=== PATIENT | male | born 1960 | race African-American/Black ===

== ENCOUNTER → 2018-07-20 | Outpatient (CLI) | payer OTHER ==
[~2018-07-20] MED LIST: ALEVE220 M1 PO; AMLODIPINE BESY10 MG PO; ASPIRIN EC81 M1 PO; AUGMENTIN 875-1 EACH PO; AUGMENTIN 875875 MG PO; ENDOCET 10-3251 EACH PO; FLEXERIL PO; HYDROCODON-ACE1 EAC7 PO; LOPRESSOR; METOPROLOL SUCC25 M1 PO; NORCO 5-325 TA1 EACH PO; NORFLEX100 MG PO; PRAVACHOL40 MG PO; SIMVASTATIN40 MG PO; ULTRAM 50MG TAB50 MG PO; XARELTO10 M1 PO
== END ==
LOC: NUC 07:55
DX: T84.84XA Pain due to internal orthopedic prosthetic devices, implants and grafts, initial encounter (principal); Z96.651 Presence of right artificial knee joint

== ENCOUNTER → 2018-08-06 | Outpatient (CLI) | payer OTHER | LOC: CAT 09:27 | DX: K76.89 Other specified diseases of liver (principal); N20.0 Calculus of kidney; N28.1 Cyst of kidney, acquired; M51.36 Other intervertebral disc degeneration, lumbar region; M41.86 Other forms of scoliosis, lumbar region ==

== ENCOUNTER 2018-10-28 05:24 | Inpatient (IN) | payer OTHER ==
[2018-10-12 09:18] LABS: HEMATOCRIT 43.1 % (42.0-52.0); HEMOGLOBIN 14.7 gm/dL (14.0-18.0); MCH 30.3 pg (26.0-34.0); MCV 89.1 fL (80.0-100.0); RBC 4.84 mil/uL (4.50-6.00); RDW 13.6 % (10.5-14.5); WBC 4.5 thou/uL (4.0-11.0)
[2018-10-12 09:23] LABS: URINE BILIRUBIN NEGATIVE (Negative); URINE BLOOD NEGATIVE (Negative); URINE CLARITY CLEAR; URINE COLOR YELLOW; URINE GLUCOSE-RANDOM* NEGATIVE (Negative); URINE KETONES NEGATIVE (Negative); URINE LEUKOCYTES-REFLEX NEGATIVE (Negative); URINE NITRITE-REFLEX NEGATIVE (Negative); URINE PROTEIN (DIPSTICK) NEGATIVE (Negative); URINE SPECIFIC GRAVITY 1.015 (1.005-1.035); URINE UROBILINOGEN 0.2 E.U./dl (0.2-1.0)
[2018-10-12 09:27] LABS: ALBUMIN 3.5 g/dL (3.4-5.0); CALCIUM 8.8 mg/dL (8.5-10.1); CREATININE 0.9 mg/dL (0.7-1.3); POTASSIUM 4.1 mmol/L (3.5-5.1)
[~2018-10-28] VITALS: Ht 185.4 cm; Wt 127.0 kg
--- NOTE | ~2018-10-28 | O ---
[facility] [place] [address] OPERATIVE REPORT Name: TERRY BURDEN Room #: 432-P ADM IN M.R.#: [id number] Admission: 11/05/18 ������������������ Attend Phys: Lawson Oliveros MD Discharge: ������������������ Date of : 60 Report #: [id number] THIS REPORT FOR: //name// CC: Lawson Barnard DATE OF SERVICE: 11/05/2018 PREOPERATIVE DIAGNOSIS: Aseptic loosening, right total knee arthroplasty. POSTOPERATIVE DIAGNOSIS: Aseptic loosening, right total knee arthroplasty. PROCEDURE: Revision of total right knee arthroplasty, all components. SURGEON: Lawson Oliveros MD MECHANIC SENIOR: Beverley Villegas PA-C. INDICATIONS FOR MECHANIC SENIOR: Throughout the case, extensive retraction and manipulation of the knee was required. This was afforded to me by my personal care assistant. ANESTHESIA: LMA with an adductor canal block. IMPLANTS: Up and Nephew size 6 Legion Oxinium revision, posterior stabilized femur with a 6 offset briquetting machine operator and a size 16 x 160 stem, a size 5 tibia with a 6 offset briquetting machine operator and a size 16 x 160 stem and a size 38 patella and a size 15 highly constrained polyethylene. TOURNIQUET TIME: 134 minutes with the tourniquet being deflated at 114 minutes for approximately 20 minutes. ESTIMATED BLOOD LOSS: Less than 50 mL. COMPLICATIONS: None. SPECIMENS: Intraoperative frozen section was performed and shown to have no neutrophils per high-power field. In addition, intraoperative cultures were taken x 2. CONDITION UPON LEAVING THE OPERATING ROOM: Stable. INDICATIONS FOR PROCEDURE: The patient is a 58-year-old gentleman who is about 6 years out from a right total knee arthroplasty. He was lost to follow up until recently. He returned with significant stiffness and pain in the knee. Workup for infection was negative. Bone scan and x-rays show him to have probable aseptic loosening of components ____ surrounding the components. ____ [facility] [address] [place] [address] OPERATIVE REPORT Name: TERRY BURDEN Room #: 432-P [facility] IN ..#: [id number] Admission: 11/05/18 ������������������ Attend Phys: Lawson Oliveros MD Discharge: ������������������ Date of : 60 Report #: [id number] for revision total knee arthroplasty. DESCRIPTION OF PROCEDURE: Risks, benefits, alternatives, complications were discussed in detail with the patient including but not limited to risk of anesthesia, risk of damage to nerves, arteries, blood vessels, risk for infection or bleeding, risk for continued knee pain and need for reoperation. Informed consent was obtained from the patient. Right knee was appropriately marked in the preoperative holding area. IV Ancef was given for preoperative antibiotics. He was brought to the operating room and placed in supine position on operating room table. LMA anesthesia was induced without complication. Tourniquet was placed on the right thigh. Right lower extremity was prepped and draped in normal sterile fashion. Timeout was performed properly identifying the patient and procedure as well as the instrumentation. All in the operating room were in agreement. Right lower extremity was exsanguinated, tourniquet was inflated. Tourniquet time was 134 minutes. The previous scar was used and this was opened with a 10 blade through the skin. Dissection was taken down sharply to the fascia and deep flaps were developed medially and laterally. Fresh 10 blade was used to make a medial parapatellar arthrotomy and the knee was inspected. There was normal-appearing joint fluid. Cultures of this were taken x 2. Several sample areas of synovium were then sent to pathology for intraoperative frozen section, which revealed ____ power field. There was extensive heterotopic ossification around the soft tissues of the knee as his knee range of motion was only 10-60 degrees. The medial and lateral gutters were reestablished. Extensive dissection had to be performed along the medial and lateral gutters both along the femur and the tibia to mobilize the tissues. The polyethylene spacer was removed and the femoral component was removed with osteotomes. There was osteolysis noted, particularly around the anterior femoral cortex. After this, attention was turned to the tibia and osteotomes were used to remove this. We actually had to go and to make our femoral cleanup cut and prepared a femur in order to create enough space to remove the tibial component. The patellar component had to be removed also in order to make room to remove the tibial component. After removing the tibial component, this was reamed up and prepared. We sized the size 5 tibia with a 6 mm offset briquetting machine operator and had a 16 x 160 stem. The trial tibial component was placed and the trial femoral component was placed. This had a 16 x 160 stem with a 6 mm offset briquetting machine operator also. The box cut was made. This was then trialed with a size 15 highly constrained polyethylene and found to have good balance medially and laterally in flexion and extension. A 38 patellar trial button was placed. Knee was taken through range of motion and found to have good patellar tracking. Trial components were removed. Bony ends were thoroughly irrigated with normal saline. Final size 5 tibia with a 6 mm offset briquetting machine operator and a 16 x [address] in place, a size 6 femur with a 16 x 160 stem and a 6 mm offset briquetting machine operator was cemented in place and a 38 patella. While the cement cured, a periarticular injection consisting of morphine, ropivacaine, epinephrine and Toradol was placed around the knee joint capsule. After the cement cured, the [facility] [address] [place] [address] OPERATIVE REPORT Name: TERRY BURDEN Room #: 432-P ADM IN M.R.#: [id number] Admission: 11/05/18 ������������������ Attend Phys: Lawson Oliveros MD Discharge: ������������������ Date of : 60 Report #: [id number] tourniquet was again deflated and hemostasis was obtained with Bovie cautery. Final size 15 highly constrained polyethylene was placed. Knee was thoroughly irrigated with normal saline. A gram of vancomycin was placed deep in the joint and fascia was closed with 0 Vicryl, skin was closed with 2-0 Vicryl, skin laura and a EDNA dressing was applied. The patient tolerated this procedure well and went to the recovery room under care of anesthesia postoperatively. ��������������������������������������������� ���������������������������������������� By: ��������������������������������������������� 1213 1244 Lawson Oliveros MD /nt
[~2018-10-28 05:24] MED LIST changes: +ALEVE220 MG PO; +AVAPRO300 MG PO; +DIOVAN160 MG PO; +IBUPROFEN 800800 M1 PO; +LIPITOR40 MG PO; +MOBIC7.5 MG PO
[2018-11-05 07:50] VITALS: BP 130/73
[2018-11-05 14:47] VITALS: BP 122/70
[2018-11-05 14:52] VITALS: BP 122/70
--- NOTE | 2018-11-05 17:26 | NUR ---
PT ADMITTED RELATED TO RIGHT TOTAL KNEE REVISION. CM REVIEWED CHART AND SPOKE WITH THE CARE TEAM. CM MET WITH PT AND SPOUSE AT BEDSIDE THIS DAY. PT IS A&O X4. CM ROLE INTRODUCED. PT INDIATED THEY LIVE IN A HOUSE WITH NO STEPS TO ENTER AND 4 STEPS INSIDE. PT INDICATED HE WILL NEED A FWW ISSUED PTD. PT INDICATED SHE HE IS SET UP WITH OP THERAPY AT [facility]. CM TO FOLLOW INDICATED WITH DC PLANNING.
[2018-11-05 19:35] VITALS: BP 141/66
--- NOTE | 2018-11-05 20:28 | NUR ---
PT ARRIVED TO FLOOR DROM RR AROUND 1435 IN STABLE CONDITION.VSS.CLEAR LIQ GIVEN AND WELL TOLERATED.IT WAS ADVANCE TO REGULAR.FAMILY AT BS MOST OF THE TIME.PT WAS UPSET LATER THIS EVENING RELATED TO SCD'S NOT TURNED ON.RN APOLOGIZED TO PT,AND SERVICE RECOVERY DONE.WILL CONTINUE TO MONITOR.
[2018-11-05 23:30] VITALS: BP 130/71
[2018-11-06 05:55] VITALS: BP 135/73
[2018-11-06 06:02] LABS: HEMATOCRIT 36.1 % (42.0-52.0); HEMOGLOBIN 12.2 gm/dL (14.0-18.0); MCH 29.9 pg (26.0-34.0); MCHC 33.7 g/dL (28.0-37.0); MCV 88.9 fL (80.0-100.0); RBC 4.06 mil/uL (4.50-6.00); RDW 13.5 % (10.5-14.5); WBC 12.1 thou/uL (4.0-11.0)
--- NOTE | 2018-11-06 06:43 | NUR ---
ASSUMED CARE AT 1900, ASSESSMENT COMPLETED. PT REPORTS VERY LITTLE PAIN IN RIGHT LEG, STILL MOSTLY NUMB IN EXTREMITY. PT REPORTS HE DOESN'T LIKE TO TAKE NARCOTICS BECAUSE THEY MAKE HIM SICK; REFUSED HS OXYCONTIN AND TOOK TYLENOL INSTEAD. IRRITABLE OVERNIGHT DUE TO BEING WOKEN UP FOR Q4 HOUR POST OP VS AND LABS; EXPLAINED THESE WERE ORDERED BY THE PHYSICIAN BUT PT STILL FRUSTRATED. URINATING WELL USING URINAL. NO OTHER CONCERNS, WILL CONTINUE TO MONITOR.
[2018-11-06 07:52] VITALS: BP 124/62
--- NOTE | 2018-11-06 11:32 | NUR ---
Assumed care of pt at 0700. Pt alert and oriented x4. Pt pleasant this am and worked with physical therapy. Pt wants to avoid narcotics. Tylenol given for pain. Polar pack in place. Dressing clean and intact. Call light within reach. Fall precautions in place. Will continue to monitor and assist with needs.
[2018-11-06] MEDS ORDERED: NEURONTIN 300300 M1 PO (12:29)
--- NOTE | 2018-11-06 14:06 | PATH ---
[facility] [place] [address] PATHOLOGY RPT PROCEDURE Name: TERRY BURDEN Room #: 432-P ADM IN M.R.#: [id number] ������������������ Admission: 11/05/18 ������������������ Date of : 60 Discharge: Report #: [id number] Path Case #: [id number] [facility] Accession Number: [id number] . 01 Material submitted: . knee - RIGHT KNEE SYNOVIUM - FS. Modifiers: right . 01 Clinical history: . Right knee presence artrifical knee joint, osteoarthritis . 02 Frozen section diagnosis: . FROZEN SECTION DIAGNOSIS (Cathi Richardson MD) . FSA1. Synvoium, right knee synovium, biopsy: - Approximately 1-2 neutrophils (none greater than 5) per high power field. . These findings are discussed with Dr. Lawson Oliveros in OR-5 at [facility] and a written report is placed in the patient's chart. (IUV:linda; 11/05/2018) . Frozen section performed at [facility], [address], [place] [address]. . . GROSS DESCRIPTION Specimen is received fresh from the OR labeled with the patient's name, "right knee synovium", consists of three firm, chandler fragments of tissue measuring 6 x 1.5 x 1 and 2.8 x 1 x 1 cm. The apparent synovium-like lining is shaved and submitted for frozen section as FSA1. This is subsequently submitted for permanent sections as A1. The unfrozen portion of the tissue is submitted representatively in A2 to A5 for permanent sections only. (IUV:linda; 11/05/2018) IZV/QMS . 02 Diagnosis: Synovium, right knee synovium, biopsy: - Chronic inflammation associated with reactive/regenerative changes including dystrophic calcifications. - Rare foci with neutrophil margination; none consistent with acute inflammation. (See comment) - Reactive synovial hyperplasia. (IUV:regional controller; 11/06/2018) MBR/11/06/2018 . [address] [place] [address] PATHOLOGY RPT PROCEDURE Name: TERRY BURDEN Room #: 432-P ADM IN M.R.#: [id number] ������������������ Admission: 11/05/18 ������������������ Date of : 60 Discharge: Report #: [id number] Path Case #: [id number] Comment: A single focus shows neutrophils in close association with the vessels. This phenomena is consistent with margination. Multiple sections are examined and none of the other sections show collection of neutrophils greater than 5/hpf to support acute inflammation in this synovial tissue. (IUV:regional controller; 11/06/2018) . 02 Electronically signed: . Cathi Richardson MD, Pathologist NPI- [id number] . 01 Gross description: . Please see gross description dictated by the pathologist located under the Frozen Section portion of this report. /QMS . 02 Pathologist provided ICD-10: M65.861 . 02 CPT . 679523, [id number] Specimen Comment: A courtesy copy of this report has been sent to Specimen Comment: [phone], . Specimen Comment: Report sent to and Performed at: [address], [place] [id number] MD Gunnar Park MD Phone: [phone] Performed at: [address] [id number] MD Cathi Richardson MD Phone: [phone]
[2018-11-06 16:30] VITALS: BP 131/55
--- NOTE | 2018-11-06 17:03 | NUR ---
CARE TEAM INDICATED THAT PT IS STILL HAVING ISSUES WITH PAIN MANAGEMENT. IT IS ANTICPATED THAT PT WILL DISHCARGE TOMORROW FRIDAY OR FRIDAY. CM ORDERED FWW THROUGH [facility] AND IT WAS DELIVED TO PT FRIDAY. PT IS SET UP WITH OP THERAPY. NO OTHER CM INTERVENTION INDICATED. CASE CLOSED.
[2018-11-06 19:20] VITALS: BP 109/66
[2018-11-06 23:00] VITALS: BP 120/72
[2018-11-06 23:50] VITALS: BP 120/72
[2018-11-07 03:20] VITALS: BP 150/82
[2018-11-07 05:12] LABS: HEMATOCRIT 33.8 % (42.0-52.0); HEMOGLOBIN 11.8 gm/dL (14.0-18.0); MCH 30.9 pg (26.0-34.0); MCHC 34.8 g/dL (28.0-37.0); MCV 88.6 fL (80.0-100.0); RBC 3.82 mil/uL (4.50-6.00); RDW 13.3 % (10.5-14.5); WBC 9.2 thou/uL (4.0-11.0)
--- NOTE | 2018-11-07 05:55 | NUR ---
Assumed pt care at 1900. A/OX4.Denies pain on assessment,doesn't want Narcotics held HS [facility] per request. Pt had a temp 0f 102.4 at beginning of shift medicated with Tylenol x2 and Temp gradually coming down 99.6.EDNA dsg on right knee C/D/I with polar ice applied. Voiding via urinal with no problems voiced. Up with assist,WBAT. Fall precautions in place. Resting quietly at this time will continue to monitor pt.
[2018-11-07 08:30] VITALS: BP 117/69
--- NOTE | 2018-11-07 12:27 | NUR ---
Assumed care of pt at 0700. Pt alert and oriented x4. SBA w/walker and gaitbelt. aware of pt running fevers. Continued treatment with tylenol. Polar pack in place. Pain controlled with prn pain meds. Pt refuses narcotic pain relievers. Uses urinal. Call light within reach. Fall precautions in place. Will continue to monitor.
[2018-11-07 16:17] VITALS: BP 137/54
[2018-11-08 05:11] LABS: HEMATOCRIT 33.1 % (42.0-52.0); HEMOGLOBIN 11.3 gm/dL (14.0-18.0); MCH 30.2 pg (26.0-34.0); MCHC 34.2 g/dL (28.0-37.0); MCV 88.3 fL (80.0-100.0); RBC 3.75 mil/uL (4.50-6.00); RDW 13.5 % (10.5-14.5); WBC 10.5 thou/uL (4.0-11.0)
[2018-11-08 05:20] VITALS: BP 129/73
--- NOTE | 2018-11-08 07:23 | NUR ---
ASSUMED CARE AT 1900, ASSESSMENT COMPLETED. PT REPORTS PAIN 4 OF 10, AGREED TO TAKE MORPHINE XR AND HS WHICH IMPROVED PAIN OVERNIGHT, PT DENIED ANY REACTION TO MED. DENIED NAUSEA OR SOB. EDNA DRESSING INTACT, POLAR PACK IN PLACE. PT ASKED TO CLEAN UP, BUT KEPT DELAYING WHEN STAFF WOULD ASK HIM IF HE WAS READY. PT THEN REPORTED HE WOULD WAIT UNTIL MORNING TO CLEAN UP; REMOTE SENSING SPECIALIST ASSISTED TO CLEAN UP THIS AM. NO OTHER CONCERNS, SHIFT REPORT GIVEN AT 0700.
[2018-11-08 07:39] VITALS: BP 123/69
--- NOTE | 2018-11-08 16:31 | NUR ---
Assumed care of pt at 0700. Pt a&ox4. Pain controlled. Polar pack in place. Family at bedside. Call light within reach. Fall precautions in place. Will continue to monitor.
[2018-11-08 17:27] VITALS: BP 131/65
[2018-11-08 20:13] VITALS: BP 121/69
--- NOTE | 2018-11-09 03:31 | NUR ---
ASSUMED PT CARE 1899. PT ALERT AND ORIENTED. REASSESSMENT COMPLETE, VSS. TEMP TREATED WITH TYLENOL. DOCTORS AWARE OF RECURRENT ELEVATED TEMPS. REPORTS MINIMAL PAIN, SEE EMARAishwarya GILLETTE N/V. PRUNE JUICE PROVIDED TO HELP PT HAVE BM. CALL LIGHT AND PERSONAL BELONGINGS WITHIN REACH. WILL CONTINUE POC UNTIL EOS.
[2018-11-09 06:44] VITALS: BP 113/57
[2018-11-09 08:20] VITALS: BP 126/69
--- NOTE | 2018-11-09 10:46 | NUR ---
ASSESMENT COMPLETED. VSS. A/O. DENIES PAIN. NO SOA. NO NV. EDNA DRESSING CDI/POLAR PACK INTACT. PT C/O CONSTIPATION- MAG CITRATE GIVEN- WAITING FOR RESULTS. PT RESTING IN BED AT THIS TIME. WILL CONT. TO MONITOR.
[2018-11-09 16:41] VITALS: BP 126/69
--- NOTE | 2018-11-09 17:32 | NUR ---
PT ABLE TO HAVE A BM. DC ORDERS GIVEN TO PT AND . BOTHE VERBALIZED UNDERSTANDING. PT DCD HOME WITH SELF CARE.
== END 2018-11-09 17:38 | disposition home or self-care (01) | DRG 468 ==
LOC: PRE 05:24 → TBA 05:24 → 4E 11-05 05:21 → TBA 11-05 05:21 → PRE 11-05 05:45 → 4E 11-05 14:43
PROVIDERS: ADMIT Orthopaedic Surgery
PROC: 0SPC0JZ Removal of Synthetic Substitute from Right Knee Joint, Open Approach (ICD-10-PCS; principal; 2018-11-05)
PROC: 0SRC0J9 Replacement of Right Knee Joint with Synthetic Substitute, Cemented, Open Approach (ICD-10-PCS; principal; 2018-11-05)
DX: T84.032A Mechanical loosening of internal right knee prosthetic joint, initial encounter (principal); E66.01 Morbid (severe) obesity due to excess calories; E78.5 Hyperlipidemia, unspecified; I10 Essential (primary) hypertension; Y83.8 Other surgical procedures as the cause of abnormal reaction of the patient, or of later complication, without mention of misadventure at the time of the procedure; Y92.89 Other specified places as the place of occurrence of the external cause; Z68.36 Body mass index [BMI] 36.0-36.9, adult
CPT/HCPCS: 10783; 50010; 50101; 50415; 50954; 51130; 51225; 51412; 53000; 53078; 54118; 55389; 56527; 56528; 57095; 57103; 57110; 57115; 57180; 62110; 62900; 64039; 70005

== ENCOUNTER 2019-02-17 21:49 | Emergency (ER) | payer OTHER ==
[~2019-02-17] VITALS: Ht 182.9 cm; Wt 129.3 kg
[~2019-02-17 21:49] MED LIST changes: +NEURONTIN 300300 M1 PO
[2019-02-17 21:50] VITALS: BP 132/77
== END 2019-02-17 22:37 | disposition home or self-care (01) ==
LOC: ER 21:49
DX: S90.821A Blister (nonthermal), right foot, initial encounter (principal); I10 Essential (primary) hypertension; E78.00 Pure hypercholesterolemia, unspecified; Z96.651 Presence of right artificial knee joint; Z87.891 Personal history of nicotine dependence; X58.XXXA Exposure to other specified factors, initial encounter; Y92.89 Other specified places as the place of occurrence of the external cause; Y93.89 Activity, other specified; Y99.8 Other external cause status

== ENCOUNTER → 2019-02-19 | Outpatient (CLI) | payer OTHER | LOC: HYPER 10:36 | DX: S90.811A Abrasion, right foot, initial encounter (principal); I10 Essential (primary) hypertension; X58.XXXA Exposure to other specified factors, initial encounter; Y93.89 Activity, other specified; Y92.89 Other specified places as the place of occurrence of the external cause; Y99.8 Other external cause status ==

== ENCOUNTER 2019-05-01 17:21 | Emergency (ER) | payer OTHER ==
[~2019-05-01] VITALS: Ht 185.4 cm; Wt 127.0 kg
[2019-05-01 19:06] VITALS: BP 121/74
== END 2019-05-01 19:07 | disposition home or self-care (01) ==
LOC: ER 17:21
DX: Z53.21 Procedure and treatment not carried out due to patient leaving prior to being seen by health care provider (principal)

== ENCOUNTER 2020-05-30 21:20 | Emergency (ER) | payer OTHER, BC ==
[~2020-05-30] VITALS: Ht 185.4 cm; Wt 113.4 kg
[2020-05-30 22:18] LABS: ABSOLUTE NEUTROPHILS 3.9 thou/uL (1.4-8.2); EOSINOPHILS 1.4 % (0.0-3.0); HEMATOCRIT 41.2 % (42.0-52.0); HEMOGLOBIN 13.6 gm/dL (14.0-18.0); LYMPHOCYTES 31.4 % (24.0-44.0); MCH 29.9 pg (26.0-34.0); MCHC 33.1 g/dL (28.0-37.0); MCV 90.4 fL (80.0-100.0); PLATELET COUNT 282 thou/uL (150-400); POLYS 55.2 % (36.0-66.0); RBC 4.55 mil/uL (4.50-6.00); RDW 14.1 % (10.5-14.5); WBC 7.2 thou/uL (4.0-11.0)
[2020-05-30 22:22] LABS: ANION GAP 7 mmol/L (7-16); BUN 19 mg/dL (7-18); CALCIUM 8.9 mg/dL (8.5-10.1); CHLORIDE 101 mmol/L (98-107); CO2 28 mmol/L (21-32); CREATININE 1.2 mg/dL (0.7-1.3); GLUCOSE 133 mg/dL (74-106); POTASSIUM 3.2 mmol/L (3.5-5.1); SODIUM 136 mmol/L (136-145)
[2020-05-30 22:43] LABS: TROPONIN-I <0.06 ng/mL (<0.06)
[2020-05-30 23:56] VITALS: BP 130/77
--- NOTE | 2020-05-31 07:01 | EKG ---
[address] [address] ELECTROCARDIOGRAM REPORT Name: TERRY BURDEN [facility]: [facility] [id number] Admission: 05/30/20 Attend Phys: Discharge: 05/31/20 Date of : 60 Report #: [id number] [facility] ED Test Date: 2020-05-30 Test Time: 21:33:38 Pat Name: TRERY BURDEN Department: Room: Gender: Yarn Hauler: JOHANNY : 1960 Requested By: Fredy Corbett Order Number: [id number] MD: Bernardo Sanford Measurements Intervals [place] Rate: 95 P: 58 LA: 142 QRS: 55 QRSD: 93 T: 19 QT: 342 QTc: 430 Interpretive Statements Sinus rhythm Compared to ECG 10/03/2012 20:49:24 No significant changes Electronically Signed On 05-31-2020 7:01:23 TECHNOLOGY APPLICATIONS CONSULTANT by Bernardo Sanford [email or web address] <ELECTRONICALLY SIGNED> By: Bernardo Sanford MD, [facility] 05/31/20 0701 2133 [id number] Bernardo Sanford MD, FACC /EPI
== END 2020-05-31 | disposition home or self-care (01) ==
LOC: ER 21:20
PROVIDERS: Nurse Practitioner
DX: R07.9 Chest pain, unspecified (principal); I10 Essential (primary) hypertension; E78.5 Hyperlipidemia, unspecified; Z79.899 Other long term (current) drug therapy; Z79.82 Long term (current) use of aspirin; Z87.891 Personal history of nicotine dependence

== ENCOUNTER → 2020-06-21 | Outpatient (CLI) | payer OTHER, BC ==
[~2020-06-21] VITALS: Ht 185.4 cm; Wt 113.6 kg
[~2020-06-21] MED LIST changes: +CHOLECALCIFEROL1 GM PO; +FLOMAX0.4 MG PO; +VITAMIN B-121000 MC2 PO
[2020-06-21 10:29] VITALS: BP 128/76
[2020-06-21 11:12] LABS: HEMATOCRIT 46.4 % (42.0-52.0); HEMOGLOBIN 15.4 gm/dL (14.0-18.0); MCH 29.9 pg (26.0-34.0); MCHC 33.2 g/dL (28.0-37.0); MCV 89.9 fL (80.0-100.0); RBC 5.15 mil/uL (4.50-6.00); RDW 14.5 % (10.5-14.5); WBC 4.9 thou/uL (4.0-11.0)
[2020-06-21 11:20] LABS: CALCIUM 8.8 mg/dL (8.5-10.1); POTASSIUM 3.8 mmol/L (3.5-5.1)
--- NOTE | 2020-06-23 17:11 | CATHLAB ---
[facility] [place] [address] INVASIVE PROCEDURE REPORT Name: TERRY BURDEN Room #: REG MODESTO KirkAishwaryaMihaelaAishwarya#: [id number] Admission: 06/21/20 Attend Phys: Will Guillen Discharge: Date of : 60 Report #: [id number] THIS REPORT FOR: cc: Fernando Barnard MD, Stanley P. MD Lammoglia, Francisco J. MD ~ APPROVED REPORT Study performed: 06/21/2020 11:18:58 Patient Details Patient Status: Out-Patient Room #: The patient is a 60 year-old male Event Personnel Will Guillen Employee Relations Assistant, Paz Garcia RTR Monitor, Yen Marks RN RN, Gin Hunter RN RN, Leelee Larson RTR Scrub Procedures Performed Art Access - R femoral artery* Left Heart Cath w/or w/o Coronaries [id number] [facility] [address] Initial Mod Sed Same Phys/QHP Gr5y [id number] 74615 Mod Sed Same Phys/QHP Ea 539338 Hemostasis w/ Mynx, supervision of conscious sedation Indication Chest pain Procedure Narrative The Right Groin^ was infiltrated with 1% Lidocaine subcutaneous anesthesia. A PINNACLE 6FR Sheath #[id number] sheath was inserted into the RFA^. Coronary angiography was performed using coronary diagnostic catheters. The right coronary system was accessed and visualized with a JR4 catheter. The left coronary system was accessed and visualized with a JL4 catheter. The left ventricle was accessed and visualized with a ANGLED PIGTAIL catheter. Closure device was deployed with a Fr MYNXGRIP 6/7F #[id number]. The patient tolerated the procedure well and there were no complications associated with the procedure. There was no hematoma. Intraoperative Conscious Sedation Sedation start time: 12:08 Case end Time: 12:42 Versed 2 mg [facility] [place] [address] INVASIVE PROCEDURE REPORT Name: TERRY BURDEN Room #: REG [facility] [id number] Admission: 06/21/20 Attend Phys: Will Call Discharge: Date of : 60 Report #: [id number] Fluoro Time: 3.20 minutes Dose: DAP 7675.20 cGycm2 1263 mGy Contrast Type and Amount: Omnipaque 100 ml Coronary Angiography The patient's coronary anatomy is co- dominant. Diagnostic Cath Left Main Large-caliber vessel normal origin bifurcates left anterior descending left circumflex free of high-grade disease LAD Moderate caliber type III vessel gives rise to his early diagonal branch and continues in the anterior interventricular sulcus giving rise to a second small diagonal branch. There is luminal irregularities present but no high-grade lesions present the LAD continues in the anterior groove there is a bend in the vessel without any significant lesions. It continues to tapers through the apex and terminates as a bifurcating vessel in the inferoposterior wall Diagonal 1 Small caliber vessel without significant high-grade lesion only luminal irregularities noted Diagonal 2 Small caliber vessel without significant obstructive lesion Circumflex Large-caliber vessel coursing the AV groove giving rise to an early small to moderate caliber marginal branches marginal branch bifurcates early and continues on the lateral aspect of the heart with luminal irregularities noted but no high-grade lesions. The circumflex proper then continues on giving rise to a second marginal branch which is small in caliber with only luminal irregularities. As the continues posteriorly giving rise to posterior wall atrial branches and has a posterior wall branch that parallels the posterior interventricular sulcus and may represent a coposterior descending vessel OM1 Small to moderate caliber vessel without significant high-grade lesion only luminal irregularities are noted OM2 Small caliber vessel without significant obstructive lesions present minimal plaquing is noted throughout its course OM3 Moderate caliber vessel which doubles as a coposterior descending artery with irregularities noted but no high-grade lesion Right Coronary Large-caliber vessel normal origin gives rise to this small caliber right atrial and right ventricular vessels. I then continues to the crux of the heart where it gives rise to a small caliber posterior descending artery which has irregularities of less than 50% in its proximal half it then tapers as it reaches the apex. The right coronary then terminates as a small caliber vessel. At the [facility] [address] [place] [address] INVASIVE PROCEDURE REPORT Name: TERRY BURDEN Room #: REG CHIDI Minor#: [id number] Admission: 06/21/20 Attend Phys: Will Call Discharge: Date of : 60 Report #: [id number] acute margin there are 2 bifurcating small to moderate caliber RV marginal branches which courses along the aspect of the right ventricular chamber towards the apex these have no significant obstructive high-grade R PDA Small caliber vessel with mild less than 50% irregularities noted but no high-grade lesions present Left Ventriculography Left Ventriculography was not performed. Hemodynamics The aortic pressure is 133/74 mmHg with a mean of 74 mmHg. The left ventricular pressure is 123/7 mmHg with a mean of mmHg. The left ventricular end diastolic pressure is 28 mmHg. Conclusion 1. Mild nonobstructive coronary artery disease with minimal plaquing 2. Normal hemodynamic Recommendations Cardiac Risk Reduction Program Medical Therapy <ELECTRONICALLY SIGNED> By: Will Guillen MD 06/23/201710 10 10 Will Guillen MD /INF
== END | disposition home or self-care (01) ==
LOC: CATH 07:25
PROVIDERS: ATTEND Internal Medicine
DX: R07.9 Chest pain, unspecified (principal); I25.10 Atherosclerotic heart disease of native coronary artery without angina pectoris; I10 Essential (primary) hypertension; E78.00 Pure hypercholesterolemia, unspecified; F17.210 Nicotine dependence, cigarettes, uncomplicated; Z98.890 Other specified postprocedural states; Z79.899 Other long term (current) drug therapy; Z96.651 Presence of right artificial knee joint

== ENCOUNTER 2021-05-13 15:25 | Emergency (ER) | payer OTHER, BC ==
[~2021-05-13] VITALS: Ht 182.9 cm; Wt 117.9 kg
[2021-05-13] MEDS ORDERED: METHOCARBAMOL500 M2 PO (17:41)
[2021-05-13 18:09] VITALS: BP 140/80
== END 2021-05-13 18:09 | disposition home or self-care (01) ==
LOC: ER 15:25
DX: S29.012A Strain of muscle and tendon of back wall of thorax, initial encounter (principal); S16.1XXA Strain of muscle, fascia and tendon at neck level, initial encounter; I10 Essential (primary) hypertension; E78.00 Pure hypercholesterolemia, unspecified; Z79.899 Other long term (current) drug therapy; Z87.891 Personal history of nicotine dependence; V89.2XXA Person injured in unspecified motor-vehicle accident, traffic, initial encounter; Y93.89 Activity, other specified; Y92.89 Other specified places as the place of occurrence of the external cause; Y99.8 Other external cause status